=== PATIENT | female | born 1940 | race Caucasian/White ===

== ENCOUNTER → 2016-08-06 | Outpatient (CLI) | payer MEDICARE, OTHER ==
[~2016-08-06] MED LIST: ALBU8.5H3 INH; CALC600T5 PO; CLOT15CR6 TOP; DILT240C62 PO; DOCU100T9 PO; FLUT9.9S NASAL; HYDR-902 PO; LATA2.5D2 BOTH EYES; LEVO125T75 PO; OMEP40CA6 PO; ONDA4SOL2 PO; OXYC30TA64 PO; TIZA4CAP6 PO
--- NOTE | 2016-08-06 14:22 | RADRPT ---
PROCEDURE: Right knee radiographs. CLINICAL INDICATION: Right knee pain. Postop. TECHNIQUE: Three views. Weight bearing. Frontal, lateral, and patellar view. COMPARISON: 05/08/2016. FINDINGS: There is no fracture or dislocation. Anterior skin omkar and surgical drains have been removed. There is a total right knee arthroplasty which appears satisfactory. There is no lytic or blastic lesion. There is no joint effusion. IMPRESSION: 1. Satisfactory postoperative appearance of the right knee. RPTAT: QQ .Marcellus Moreno MD, MD Date Time Electronically viewed and signed by .Marcellus Moreno MD, MD on 08/06/2016 14:22 .R/
--- NOTE | 2016-08-07 00:34 | HKNOTE ---
DATE OF SERVICE: 08/06/2016 The patient underwent a right knee replacement on 05/09/2016. Her recovery was excellent and she was doing very well except she had a small scab at the lower end of her wound. When she was last seen there was a small scab at the lower end of the wound. She was diagnosed as having cellulitis of the knee and was admitted to [facility] for intravenous antibiotics and infectious di sease consult. On 05/28/2016 she was again seen in the office. Her omkar were still in place. The wound appeare d to be healing well. Her vital signs were normal. Patient was advised to return in 3 weeks for re evaluation. However, for some reason she has not returned sooner and not returned on time. She com es in today for recheck. She has no pain in her right knee. She still has an unhealed "ulcer" at the lower end of the total knee replacement incision. According to the patient, she has been seeing a plastic surgeon in [facility] who has been "taking care my wound" and he plans to debride the ulcer next week. PHYSICAL EXAMINATION: VITAL SIGNS: The patient's temperature is 97.9. EXTREMITIES: Her knee has an excellent range of motion without pain. She comes in with her daughter . 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 MANAGEMENT: A culture was obtained from this ulcer, new dressings were applied. The big question i s whether or not there is drainage connection between this ulcer and the inside of the knee. The pa tient will return next week and I will inject methylene blue into her knee to see if it leaks out th rough the ulcer area before she proceeds with the plastic surgeons proposed debridement. Dictated By: BERNICE MIDDLETON/JAMESON Conf#: [id number] DID#: [id number]
== END | disposition home or self-care (01) ==
LOC: HKI 13:39
DX: Z47.1 Aftercare following joint replacement surgery (principal); L03.119 Cellulitis of unspecified part of limb; Z96.651 Presence of right artificial knee joint
CPT/HCPCS: 73562; G0463

== ENCOUNTER → 2016-08-13 | Outpatient (CLI) | payer MEDICARE, OTHER ==
--- NOTE | 2016-08-13 19:53 | HKNOTE ---
DATE OF SERVICE: 08/13/2016 The patient comes in for a methylene blue injection into her right knee. This will be in an attempt to see if any of the methylene blue tracks through the small lesion at the lower end of her wound. The cultures taken from the wound at the last visit showed predominantly "skin organisms." MANAGEMENT: Under sterile conditions, the knee was aspirated of approximately 10 mL of clear yellow shell fluid which is being sent for cell count, culture and sensitivity. Leaving the needle in place, 1 vial of methylene blue was injected into the knee. Once we have the culture results from the fluid obtained today, I will call her daughter Ayse at cell phone [phone]. Dictated By: BERNICE MIDDLETON/JAMESON Conf#: [id number] DID#: [id number]
== END | disposition home or self-care (01) ==
LOC: HKI 13:12
DX: S80.911D Unspecified superficial injury of right knee, subsequent encounter (principal)
CPT/HCPCS: 20610; G0463

== ENCOUNTER → 2016-10-22 | Outpatient (CLI) | payer MEDICARE, OTHER ==
--- NOTE | 2016-10-22 20:45 | HKNOTE ---
DATE OF SERVICE: 10/22/2016 HISTORY OF PRESENT ILLNESS: The patient comes in for checkup on her right knee. She underwent a [facility] total knee replacement on 05/09/2016. She had a small open crusty wound at the lower end of her incision. She has been under the care of Dr. Hunter Bui in [place]. He referred her to [facility] her physician, Dr. Sal, who has treated the small wound with various commercially available patches . The patient is not exactly sure, but she thinks one of the patches was made out of pig skin. PHYSICAL EXAMINATION: GENERAL: The patient arrives with her daughter. VITAL SIGNS: Height 5 foot 3, weight not listed, blood pressure 135/75, temperature is 98.1. RIGHT KNEE: An excellent range of motion without pain. A very small residual area, which is not fu lly healed where the skin still looks as though it might break down at some point and where the skin still looks very small residual redness where the wound was previously present. The redness has no t returned to its normal skin color. It is certainly dry and there is nothing to culture. The marco ent is doing well. IMAGING: X-rays of her knee obtained today show all components to be well attached to the bone and well aligned. The patient walks without a walking aid. She will be seen again in 6 months' time for reevaluation of her knee. Dictated By: BERNICE MIDDLETON/JAMESON Conf#: [id number] DID#: [id number]
== END | disposition home or self-care (01) ==
LOC: HKI 13:36
DX: Z47.89 Encounter for other orthopedic aftercare (principal); Z96.651 Presence of right artificial knee joint
CPT/HCPCS: G0463